=== PATIENT | female | born 1965 | race African-American/Black ===

== ENCOUNTER 2018-02-19 15:03 | Emergency (ER) | payer OTHER ==
[~2018-02-19] VITALS: Ht 165.1 cm; Wt 86.4 kg
[2018-02-19 15:25] VITALS: Ht 165.1 cm; Wt 86.4 kg
[2018-02-19] MEDS ORDERED: NORVASC10 MG PO (15:25)
[2018-02-19] MEDS ORDERED: VOLTAREN75 MG PO (16:46)
[2018-02-19 18:10] VITALS: BP 186/108
== END 2018-02-19 17:57 | disposition home or self-care (01) ==
LOC: D.ER 15:03
DX: M25.562 Pain in left knee (principal); I10 Essential (primary) hypertension